=== PATIENT | female | born 1955 | race African-American/Black ===

== ENCOUNTER 2019-01-07 16:55 | Emergency (ER) | payer MEDICARE, MEDICAID ==
[2019-01-07 17:08] VITALS: BP 156/95
--- NOTE | 2019-01-07 17:15 | UC ---
Dizzy HPI HPI Summary: 63 yo female with one week hx of polydipsia/polyuria, visual complaints, n/v and dizziness no CP or SOB 2 days ago had some palpitations ...lasted 10-15 min - History Of Current Complaint Chief Complaint: UCDizziness Stated Complaint: HIGH BLOOD SUGAR, LIGHT HEADED Time Seen by Provider: 01/07/19 17:15 Hx Obtained From: Patient Hx Last Menstrual Period: post Onset/Duration: Gradual Onset, Lasting Days Timing: Constant Severity Initially: Mild Severity Currently: Moderate Pain Intensity: 0 Pain Scale Used: 0-10 Numeric Character: Lightheaded, Weak, Dizzy Aggravating Factor(s): Position Change Alleviating Factor(s): Rest Associated Signs And Symptoms: Positive: Nausea, Vomiting, Palpitations - 2 days prior, Unsteady Gait, Visual Changes. Negative: Diaphoresis, Tinnitus, Chest Pain, SOB, Decreased Oral Intake, Change In Medication, Change In Diet, OTC Medications - Allergies/Home Medications Allergies/Adverse Reactions: Allergies Allergy/AdvReac Type Severity Reaction Status Date / Time codeine Allergy Intermediate Itching Verified 01/07/19 17:08 Home Medications: Home Medications NK [No Home Medications Reported] 01/07/19 [History Confirmed 01/07/19] PMH/Surg Hx/FS Hx/Imm Hx Previously Healthy: Yes - Surgical History Surgery Procedure, Year, and Place: tubal ligation. D and C. back surgery - Family History Known Family History: Positive: Hypertension, Diabetes - Social History Alcohol Use: None Substance Use Type: None Smoking Status (MU): Light Every Day Tobacco Smoker Type: Cigarettes Review of Systems All Other Systems Reviewed And Are Negative: Yes Constitutional: Positive: Fatigue Skin: Positive: Negative Eyes: Positive: Negative ENT: Positive: Negative Respiratory: Positive: Negative Cardiovascular: Positive: Palpitations Gastrointestinal: Positive: Vomiting, Nausea Genitourinary: Positive: Frequency Motor: Positive: Negative Neurovascular: Positive: Negative Musculoskeletal: Positive: Negative Neurological: Positive: Negative Psychological: Positive: Negative Physical Exam Triage Information Reviewed: Yes Appearance: Well-Appearing, No Pain Distress, Well-Nourished Vital Signs: Initial Vital Signs Temp 98.3 F 01/07/19 17:03 Pulse 89 01/07/19 17:03 Resp 19 01/07/19 17:03 BP 156/95 01/07/19 17:03 Pulse Ox 100 01/07/19 17:03 Vital Signs Reviewed: Yes Eyes: Positive: Conjunctiva Clear ENT: Positive: Hearing grossly normal. Negative: Nasal congestion, Nasal drainage, Trismus, Muffled voice, Hoarse voice Dental: Negative: Abscess @ Neck: Positive: Supple Respiratory: Positive: Lungs clear, Normal breath sounds, No respiratory distress, No accessory muscle use Cardiovascular: Positive: RRR, No Murmur Abdomen Description: Positive: Nontender, No Organomegaly. Negative: CVA Tenderness (R), CVA Tenderness (L) Bowel Sounds: Positive: Present Musculoskeletal: Positive: ROM Intact, No Edema Neurological: Positive: Alert Skin Exam: Normal Diagnostics - EKG Cardiac Rate: NL Cardiac Rhythm: Sinus: Normal Ectopy: None ST Segment: Normal Dizzy Course/Dx - Course Course Of Treatment: UA +++ glucose, ++ketones, finger stick too high to read D/W Ruslan in [facility] Transfer via EMS - Differential Dx/Diagnosis Provider Diagnosis: Hyperglycemia, Dizziness Discharge - Sign-Out/Discharge Documenting (check all that apply): Patient Departure All imaging exams completed and their final reports reviewed: No Studies - Discharge Plan Condition: Stable Disposition: TRANS HIGHER LVL OF CARE FAC - Billing Disposition and Condition Condition: STABLE Disposition: Trans Higher Lvl of Care Fac
[2019-01-07] MEDS ORDERED: NS 0.9% 1000 ML** 1,000 ML BOLUS ONE (17:48)
== END 2019-01-07 18:00 | disposition short-term general hospital (02) ==
LOC: UCEAST 16:55
DX: R73.9 Hyperglycemia, unspecified (principal); R42 Dizziness and giddiness; R11.2 Nausea with vomiting, unspecified; R26.81 Unsteadiness on feet; H53.9 Unspecified visual disturbance; R63.1 Polydipsia; R35.8 Other polyuria; Z88.5 Allergy status to narcotic agent; F17.210 Nicotine dependence, cigarettes, uncomplicated
CPT/HCPCS: 81003; 99203; G0463

== ENCOUNTER 2019-01-07 18:58 | Inpatient (IN) | payer MEDICARE, MEDICAID ==
[2019-01-07] MEDS ORDERED: NS 0.9% 1000 ML** 1,000 ML IV ONE (19:18)
--- NOTE | 2019-01-07 19:25 | ED ---
Dizziness - HPI Summary HPI Summary: Pt is a 63 y/o F presenting to the ED brought in by EMS from [facility] for a diabetic issue. About 1 month ago, she started experiencing frequent thirst accompanied by frequent urination, dizziness, and heart palpitations. On 01/03/19 , she noted more frequent heart palpitations, vomiting and when she went to take her trash out her L leg buckled d/t weakness. Today, she went to [facility] for dizziness, where they discovered her blood sugar was very high in the 400s. In transport by EMS, her high blood sugar was confirmed in the 300s. She denies one-sided weakness, issues with her vision or issues with her speech , CP, and SOB. She has Fhx of DM, MN, and CVAs. She thinks this could be a diabetic issue but she does not have any personal hx of diabetes. - History Of Current Complaint Chief Complaint: EDDiabeticProb Stated Complaint: HIGH BLOOD SUGAR/POSS DIABETIC PROBLEM PER EMS Hx Obtained From: Patient Onset/Duration: Still Present, Gradually Timing: Constant Severity Initially: Moderate Severity Currently: Moderate Character: Dizzy Aggravating Factor(s): Nothing Alleviating Factor(s): Nothing Associated Signs And Symptoms: Positive: Nausea, Vomiting, Palpitations, Other: - frequent urination, increased thirst, heart palpitations. Negative: Chest Pain, SOB, Visual Changes, Slurred Speech - Allergies/Home Medications Allergies/Adverse Reactions: Allergies Allergy/AdvReac Type Severity Reaction Status Date / Time codeine Allergy Intermediate Itching Verified 01/07/19 17:08 PMH/Surg Hx/FS Hx/Imm Hx Previously Healthy: Yes Endocrine/Hematology History: Denies: Hx Thyroid Disease Cardiovascular History: Denies: Hx Hypertension Respiratory History: Denies: Hx Chronic Obstructive Pulmonary Disease (COPD) - Surgical History Surgery Procedure, Year, and Place: tubal ligation. D and C. back surgery Infectious Disease History: No Infectious Disease History: Denies: Hx Hepatitis, Traveled Outside the [place] in Last 30 Days - Family History Known Family History: Positive: Cardiac Disease, Hypertension, Diabetes, Other - CVA - Social History Alcohol Use: None Hx Substance Use: No Substance Use Type: Reports: None Hx Tobacco Use: Yes Smoking Status (MU): Former Smoker Type: Cigarettes Review of Systems Positive: Other - increased thirst Positive: Palpitations. Negative: Chest Pain Negative: Shortness Of Breath Positive: Vomiting, Nausea Positive: frequency Neurological: Other - dizziness Positive: Weakness - weakness in L leg, no unilateral general weakness. All Other Systems Reviewed And Are Negative: Yes Physical Exam - Summary Physical Exam Summary: Constitutional: Well-developed, Well-nourished, Alert. (-) Distressed Skin: Warm, Dry HENT: Normocephalic; Atraumatic Eyes: Conjunctiva normal Neck: Musculoskeletal ROM normal neck. (-) JVD, (-) Stridor, (-) Tracheal deviation Cardio: Rhythm regular, rate normal, Heart sounds normal; Intact distal pulses; The pedal pulses are 2+ and symmetric. Radial pulses are 2+ and symmetric. (-) Murmur Pulmonary/Chest wall: Effort normal. (-) Respiratory distress, (-) Wheezes, (-) Rales Abd: Soft, (-) tenderness, (-) Distension, (-) Guarding, (-) Rebound Musculoskeletal: (-) Edema Lymph: (-) Cervical adenopathy Neuro: Alert, Oriented x3 Psych: Mood and affect Normal Triage Information Reviewed: Yes Vital Signs On Initial Exam: Initial Vitals Temp Pulse Resp BP Pulse Ox 97.8 F 79 18 149/119 99 01/07/19 19:05 01/07/19 19:05 01/07/19 19:05 01/07/19 19:05 01/07/19 19:05 Vital Signs Reviewed: Yes Diagnostics - Vital Signs Vital Signs Temp Pulse Resp BP Pulse Ox 01/07/19 19:05 97.8 F 79 18 149/119 99 - Laboratory Result Diagrams: 01/07/19 19:39 01/07/19 19:39 Lab Statement: Any lab studies that have been ordered have been reviewed, and results considered in the medical decision making process. - EKG 2052 Cardiac Rate: NL - 85bpm EKG Rhythm: Sinus Rhythm ST Segment: Normal Ectopy: None Summary of EKG Findings: EKG at 2052 shows NSR at 85bpm with nml ND intervals, nml QRS, nml QTc, nml ST segment, and flattened T-waves in aVF. Overall, this is a nonspecific EKG. Re-Evaluation - Re-Evaluation 1st re-eval Re-Evaluation Time: 20:54 Change: Unchanged Comment: I discussed the results and plan with the patient who is agreeable to being admitted. Dizzy Course/Dx - Course Course Of Treatment: Pt is a 63 y/o F presenting to the ED from [facility] brought in by EMS for high blood sugar. Over the past month, she has experienced her L leg buckling d/t weakness, dizziness, frequent urination with increased thirst, heart palpitations, nausea, and vomiting. She denies one-sided weakness, issues with her vision or issues with her speech, CP, and SOB. She has Fhx of diabetes , but has never been diagnosed herself. Pt's physical exam is unremarkable. Pt s bloodwork is nml. Blood gas shows VBG HCO3 of 22.3, VBG O2Sat of 24, and VBG base excess is -0.8. Her chemistry shows sodium of 132, chloride of 98, AST of 10, alkaline phosphate of 134, CRP of 12.75, and lipase of 75. She has a notably high blood glucose of 519, and POC glucose of 402. EKG at 2052 shows NSR at 85bpm with nml ND intervals, nml QRS, nml QTc, nml ST segment, and flattened T-waves in aVF. Overall, this is a nonspecific EKG. Pt will be admitted to [facility] under Dr. Vargas w/ anya including new-onset diabetes, hyperglycemia, and near syncope, as of 2051. I discussed the results with the pt at 2053 who is agreeable with this plan. - Diagnoses Provider Diagnoses: Diabetes mellitus, new onset, Hyperglycemia, Pre-syncope Discharge - Sign-Out/Discharge Documenting (check all that apply): Patient Departure - Discharge Plan Condition: Stable Disposition: ADMITTED TO [facility] - Billing Disposition and Condition Condition: STABLE Disposition: Admitted to [facility] - Attestation Statements Document Initiated by Martitaibjose: Yes Documenting Scribe: Lizet Hassan Provider For Whom Robb is Documenting (Include Credential): Jennifer Cee MD. Scribe Attestation: Lizet Haile, scribed for Jennifer Pedraza MD. on 01/07/19 at 2242. Scribe Documentation Reviewed: Yes Provider Attestation: The documentation as recorded by the Lizet schmidt accurately reflects the service I personally performed and the decisions made by me, Jennifer Pedraza MD. Status of Scribe Document: Viewed Consult Consult: 2051 - I spoke with Dr. Vargas who will be admitting the pt to [facility].
[2019-01-07 19:56] LABS: ABS Basophils 0 10^3/ul (0-0.2); ABS Eosinophils 0 10^3/ul (0-0.6); ABS Lymphocytes 2.1 10^3/ul (1.0-4.8); ABS Monocytes 0.5 10^3/ul (0-0.8); ABS Neutrophils 2.9 10^3/ul (1.5-7.7); ABS Nucleated RBC 0 10^3/ul; Eosinophil % 0.6 %; Hematocrit 39 % (35-47); Hemoglobin 13.1 g/dL (12.0-16.0); Lymphocyte % 38.4 %; Mean Corpuscular HGB Conc 33 g/dL (31-36); Mean Corpuscular Hemoglobin 30 pg (27-31); Mean Corpuscular Volume 90 fL (80-97); Mean Platelet Volume 7.5 fL (7.4-10.4); Nucleated Red Blood Cells % 0.2; Platelet Count 325 10^3/uL (150-450); Red Blood Count 4.37 10^6 /uL (3.70-4.87); Red Cell Distribution Width 13 % (10.5-15); White Blood Count 5.6 10^3/uL (3.5-10.8)
[2019-01-07 20:06] LABS: Albumin 4.3 g/dL (3.2-5.2); Albumin/Globulin Ratio 1.1 (1-3); BUN/Creatinine Ratio 13.2 (8-20); C Reactive Protein 12.75 mg/L (<8.01); Calcium 9.6 mg/dL (8.6-10.3); EGFR African American 92.4 (>60); EGFR Non-African American 76.4 (>60); Globulin 3.8 g/dL (2-4); Phosphorus 3.1 mg/dL (2.5-5.0); Potassium 4.4 mmol/L (3.5-5.0); Total Bilirubin 0.5 mg/dL (0.2-1.0); Total Protein 8.1 g/dL (6.4-8.9)
[2019-01-07] MEDS ORDERED: Insulin REGULAR(*) 1 UNITS UNIT IV PUSH ONE (20:16)
[2019-01-07 21:32] LABS: Urine Appearance Clear; Urine Bacteria Absent (Absent); Urine Bilirubin Negative (Negative); Urine Blood 2+ (Negative); Urine Color Straw; Urine Glucose 3+(>=500 mg/dL) (Negative); Urine Ketones 2+ (Negative); Urine Nitrite Negative (Negative); Urine Protein Negative (Negative); Urine Red Blood Cell Trace(0-2/hpf) (Absent); Urine Specific Gravity 1.035 (1.010-1.030); Urine Squamous Epithelial Cell Present (Absent); Urine Urobilinogen Negative (Negative); Urine White Blood Cell Trace(0-5/hpf) (Absent)
--- NOTE | 2019-01-07 21:50 | ADMNOTE ---
Subjective Date of Service: 01/07/19 Interval History: HISTORY and PHYSICAL PCP: none CC: dizziness/fall HPI: Patient is 63 year old woman with history of obesity, hyperlipidemia, who has had 1 week of dizziness, unsteadiness. Four days ago, left leg spasmed when walking to mailbox, and she slowly fell to ground. She was able to get up, had no head injury, no loss of consciousness. She also has had increased thirst, polydipsia for 1 week, and polyuria for 2 weeks. Her vision has been blurred off and on. She is working on quitting tobacco, fully quit 1 week ago. Family History: Findings - Mother of CAD, brother has diabetes, son has severe mental retardation Social History: Findings - Disabled, cares for son, , 4 children, quit tobacco, no alcohol or drug use, Past Medical History: Findings - Obesity, hyperlipidemia, GERD, h/o superficial phlebitis; PSH: LS spine surgery, bladder suspension, vein stripping Review of Systems - Measurements Intake and Output: Intake and Output Last 24 Hours 01/05/19 01/06/19 01/07/19 01/08/19 06:59 06:59 06:59 06:59 Intake Total 1000 Balance 1000 Weight 83.915 kg Intake: IV Fluids 1000 - Review of Systems Constitutional Symptoms: Positive: Fatigue Dermatology: Positive: Normal HEENT: Positive: Normal Eyes: Positive: Change in Vision Thyroid: Positive: Normal Pulmonary: Positive: Normal Negative: Shortness of Breath Cardiology: Positive: Normal Negative: Chest Pain Gastroenterology: Positive: Abdominal Pain Genital - Urinary: Positive: Polyuria Musculoskeletal: Positive: Joint Pain Endocrinology: Positive: Polydipsia, Polyuria Hematologic/Lymphatic: Negative: Anemia Neurology: Positive: Change in Vision, Change in Balancing, Change in Coordination, Change in Walking Psychiatry: Positive: Normal Objective Active Medications: Home Medications: None Vital Signs - 8 hr 01/07/19 01/07/19 01/07/19 20:06 20:35 21:00 Temperature Pulse Rate 79 82 88 Respiratory Rate Blood Pressure 150/101 152/111 (mmHg) O2 Sat by Pulse 94 99 97 Oximetry 01/07/19 01/07/19 21:05 21:35 Temperature Pulse Rate 85 92 Respiratory Rate Blood Pressure 141/99 137/99 (mmHg) O2 Sat by Pulse 98 100 Oximetry Oxygen Devices in Use Now: None Appearance: alert, no distress Eyes: No Scleral Icterus Ears/Nose/Mouth/Throat: NL Teeth, Lips, Gums Neck: NL Appearance and Movements; NL JVP Respiratory: Symmetrical Chest Expansion and Respiratory Effort, Clear to Auscultation Cardiovascular: NL Sounds; No Murmurs; No JVD, RRR Abdominal: No Hepatosplenomegaly, - - tender RUQ, +BS, no masses Lymphatic: No Cervical Adenopathy Extremities: No Edema Skin: No Rash or Ulcers Neurological: Alert and Oriented x 3 Lines/Tubes/Other Access: Clean, Dry and Intact Peripheral IV Nutrition: Taking PO's Result Diagrams: 01/07/19 19:39 01/07/19 19:39 Additional Lab and Data: Laboratory Tests 01/07/19 01/07/19 01/07/19 19:31 19:39 19:39 VBG pH VBG pCO2 VBG pO2 VBG HCO3 VBG O2 Saturation Glucose 519 H* POC Glucose (mg/dL) 402 H* Lactic Acid 1.4 Alkaline Phosphatase 134 H Troponin I 0.00 Lipase 97 H 01/07/19 19:39 VBG pH 7.38 VBG pCO2 41 VBG pO2 < 38.0 VBG HCO3 22.3 L VBG O2 Saturation 24.0 L Glucose POC Glucose (mg/dL) Lactic Acid Alkaline Phosphatase Troponin I Lipase EKG Data: EKG: normal sinus rhythm, non-spec T-wave changes III, aVL Assess/Plan/Problems-Billing Assessment: 63 year old woman w/ new onset diabetes, mild hyperosmolar state, fall - Patient Problems (1) Diabetes type 2, uncontrolled Current Visit: Yes Status: Acute Priority: High Code(s): E11.65 - TYPE 2 DIABETES MELLITUS WITH HYPERGLYCEMIA SNOMED Code(s): 996102680 Comment: -Patient has new onset diabetes, risk of hyperosmolar state, clearly non-ketotic -Calculated Na is 139, will check serum osm. -Admit to medical, hydrate aggressively, and start on long-acting insulin -Humalog will be given every 4 hours, does not require insulin drip -Will need nutrition consult, insulin treatment due to severity of diabetes -Consider discharge on metformin -Needs to establish with primary care (2) Hypertension Current Visit: Yes Status: Acute Priority: Medium Code(s): I10 - ESSENTIAL (PRIMARY) HYPERTENSION SNOMED Code(s): 34343264 Comment: -BP above target 130/85, will start lisinopril (3) Right upper quadrant abdominal pain Current Visit: Yes Status: Acute Priority: Medium Code(s): R10.11 - RIGHT UPPER QUADRANT PAIN SNOMED Code(s): 974696593 Comment: -RUQ pain, differential includes gastritis, gallstones, cholecystitis. -RUQ ultrasound planned in AM (4) Elevated lipase Current Visit: Yes Status: Acute Priority: Medium Code(s): R74.8 - ABNORMAL LEVELS OF OTHER SERUM ENZYMES SNOMED Code(s): 914617631 Comment: -lipase mildly elevated, will recheck in AM, may have mild pancreatitis (5) DVT prophylaxis Current Visit: Yes Status: Acute Priority: Low Code(s): KDM2430 - SNOMED Code(s): 749462677 Comment: -Moderate risk, start SC Lovenox
[2019-01-07] MEDS: Insulin GLARGINE(*) 1 UNITS UNIT SUBCUT SCH (23:04)
[2019-01-07] MEDS: Lisinopril TAB* 10 MG PO SCH (23:05)
[2019-01-07] MEDS: Enoxaparin(*) 40 MG/0.4 ML SYR SUBCUT SCH (23:05)
[2019-01-07] MEDS: Insulin LISPRO* 1 UNITS UNIT SUBCUT SCH (23:49)
[2019-01-08] MEDS: Al Hydrox/Mg Hydrox/Simet LIQ* 30 ML UDC PO PRN ×2 (01:42→14:26)
[2019-01-08] MEDS: Insulin LISPRO* 1 UNITS UNIT SUBCUT SCH ×6 (01:52→21:29)
[2019-01-08] MEDS: NS 0.9% 1000 ML** 1,000 ML IV SCH ×3 (04:03→21:48)
[2019-01-08 07:21] LABS: BUN/Creatinine Ratio 21.1 (8-20); Calcium 8.6 mg/dL (8.6-10.3); EGFR African American 128.8 (>60); EGFR Non-African American 106.4 (>60); Potassium 3.2 mmol/L (3.5-5.0)
[2019-01-08] MEDS: Lisinopril TAB* 10 MG PO SCH (08:32)
[2019-01-08] MEDS: KCL 20 MEQ/100 ML IVPREMIX* 20 MEQ/100 ML BAG IV SCH ×2 (08:35→11:56)
[2019-01-08] MEDS ORDERED: Potassium Chlor TAB* 20 MEQ TAB.ER PO SCH (12:00)
[2019-01-08] MEDS: Potassium Chloride LIQUID 20 MEQ/15 ML PO SCH ×2 (14:26→16:17)
--- NOTE | 2019-01-08 16:41 | PN ---
Subjective Date of Service: 01/08/19 Interval History: VS: VS WNL Lab: hypokalemia- repleted; elevated BS Pt states that she is feeling better today. Yesterday, she c/o dizziness, blurred vision, increased urine output, polydipsia. She states she has had progressive vision changes for approximately 1 year. Today she is closer to baseline. She reports decrease in dizziness. She continues to have intermittent RUQ pain that she describes as soreness with occasional sharpness. She has intermittent nausea without vomiting. She denies CP, SOB. She reports that she quit smoking last week. Family History: Findings - Mother of CAD, brother has diabetes, son has severe mental retardation Social History: Findings - Disabled, cares for son, , 4 children, quit tobacco, no alcohol or drug use, Past Medical History: Findings - Obesity, hyperlipidemia, GERD, h/o superficial phlebitis; PSH: LS spine surgery, bladder suspension, vein stripping Objective Active Medications: Al Hydrox/Mg Hydrox/Simethicone (Maalox Plus*) 30 ml PO Q4H PRN Enoxaparin Sodium (Lovenox(*)) 40 mg SUBCUT BEDTIME PAULA Sodium Chloride (Ns 0.9% 1000 Ml) 1,000 mls @ 150 mls/hr IV PER RATE [facility] Insulin Human Lispro (Humalog*) 0 units SUBCUT ACHS PAULA; Protocol Lisinopril (Prinivil Tab*) 10 mg PO DAILY [facility] Vital Signs - 8 hr 01/08/19 01/08/19 01/08/19 09:00 11:14 13:55 Temperature 98.4 F 97.9 F 97.7 F Pulse Rate 57 74 76 Respiratory 16 18 20 Rate Blood Pressure 114/62 110/74 129/70 (mmHg) O2 Sat by Pulse 100 100 100 Oximetry Oxygen Devices in Use Now: None Appearance: Pt is ambulating well, and sits during discussion. She appears well and in no acute distress. Eyes: No Scleral Icterus, PERRLA Ears/Nose/Mouth/Throat: NL Teeth, Lips, Gums, Clear Oropharnyx, Mucous Membranes Moist Neck: NL Appearance and Movements; NL JVP, Trachea Midline Respiratory: Symmetrical Chest Expansion and Respiratory Effort, Clear to Auscultation Cardiovascular: NL Sounds; No Murmurs; No JVD, RRR, No Edema Abdominal: - - BS in all quadrants. Abdomen TTP at RUQ with positive Cabral's sign. No distention. Extremities: No Edema, No Clubbing, Cyanosis Neurological: Alert and Oriented x 3 Result Diagrams: 01/07/19 19:39 01/08/19 06:29 Additional Lab and Data: Laboratory Tests 01/07/19 01/07/19 01/07/19 19:31 19:39 19:39 VBG pH VBG pCO2 VBG pO2 VBG HCO3 VBG O2 Saturation Glucose 519 H* POC Glucose (mg/dL) 402 H* Lactic Acid 1.4 Alkaline Phosphatase 134 H Troponin I 0.00 Lipase 97 H 01/07/19 19:39 VBG pH 7.38 VBG pCO2 41 VBG pO2 < 38.0 VBG HCO3 22.3 L VBG O2 Saturation 24.0 L Glucose POC Glucose (mg/dL) Lactic Acid Alkaline Phosphatase Troponin I Lipase Microbiology and Other Data: Microbiology 01/07/19 21:21 Urine Culture - Final Urine No Growth (<1,000 CFU/mL) EKG Data: EKG: normal sinus rhythm, non-spec T-wave changes III, aVL Assess/Plan/Problems-Billing Assessment: 63 year old woman w/ new onset diabetes, mild hyperosmolar state, fall. - Patient Problems (1) Diabetes type 2, uncontrolled Comment: -New onset DM II. BS low in a.m., trend up during day. -Continue Lantus 15 -Start standing Lispro 5 with Lispro ss -Awaiting nutrition consult -Consider discharge on metformin -Needs to establish with primary care (2) Right upper quadrant abdominal pain Comment: -Continued intermittent RUQ pain with positive Cabral's sign; US reveals cholelith with indeterminate acute cholecystitis, CBD ectasia -Surgery consulted (3) Hypertension Comment: -Well controlled with Lisinopril (4) DVT prophylaxis Comment: -Lovenox SQ Status and Disposition: Inpatient. Pending surgical evaluation due to US shows cholelith, indeterminate cholecystitis; positive Cabral's Sign on PE. Awaiting nutritional consult and DM education.
[2019-01-08] MEDS ORDERED: Dextrose 50% Syringe 50 ML* 25 GM/50 ML SYRINGE IV PUSH PRN (17:49)
--- NOTE | 2019-01-08 20:55 | CONS ---
CONSULTATION REPORT: DATE OF CONSULT: 01/08/19 CHIEF COMPLAINT: Abdominal pain. HISTORY OF PRESENT ILLNESS: Ms. Lisset Slaughter is a 63-year-old female admitted with poorly controlled diabetes. She also had some right upper quadrant pain last night and therefore, an ultrasound was ordered and she is found to have cholelithiasis. There are no definite findings of acute cholecystitis. By history, she has been having gallbladder symptoms for over a year. Sometimes it might occur once a month, sometimes it can occur a couple of times a week. She is a little vague in terms of her history of how often that is happening. She shows me the right subcostal region where the pain occurs. Sometimes it goes around to the back, sometimes she has nausea, queasiness, vomiting. She might have some diarrhea. She does not tend to have any change in the color of the stool or urine. She does tend to be febrile. She has not been admitted to the hospital with this before. She has not had any surgery in the region and maybe she is a little gassy or belchy or bloated, although again she is a little vague on those symptoms. PHYSICAL EXAM: On examination today, she is a well-built, well-nourished female consistent with stated age, does not appear acutely ill. Sclerae anicteric. She is not diaphoretic. Abdomen is obese and soft. There is a trace right subcostal tenderness. No Cabral sign, no guarding, no rebound tenderness. She states to me that it is way better than it was last night. DIAGNOSTIC STUDIES/LAB DATA: Her laboratory studies show normal bilirubin and relatively normal transaminases, and alkaline phosphatase is trace elevated. Her lipase is also trace elevated at 120. IMPRESSION AND RECOMMENDATIONS: A 63-year-old female with poorly controlled type 2 diabetes, who comes in for exacerbation of her diabetes and has some right upper quadrant pain. The pain has abated quite a bit and it seems to me that she has chronic cholecystitis with flare-ups of biliary colic. I have discussed this with her. I think she would benefit from laparoscopic cholecystectomy. She understands the procedure, the rationale, the risks and the expected recovery and agrees to proceed in the fashion outlined. However, there is nothing that mandate surgery acutely right now or even on this admission, the current attack has abated, so I suggest that she be discharged when medically appropriate and I will get her on the operating schedule for next week and we can bring her back in for gallbladder surgery at that time. [id number]/[facility] #: [id number] KEVON
[2019-01-08] MEDS: Insulin GLARGINE(*) 1 UNITS UNIT SUBCUT SCH (21:29)
[2019-01-08] MEDS: Enoxaparin(*) 40 MG/0.4 ML SYR SUBCUT SCH (21:30)
[2019-01-09] MEDS: NS 0.9% 1000 ML** 1,000 ML IV SCH (04:40)
[2019-01-09 07:04] LABS: BUN/Creatinine Ratio 15.6 (8-20); Calcium 8.4 mg/dL (8.6-10.3); EGFR African American 112.7 (>60); EGFR Non-African American 93.1 (>60)
[2019-01-09] MEDS ORDERED: Insulin GLARGINE(*) 1 UNITS UNIT SUBCUT SCH (09:00)
[2019-01-09] MEDS: Insulin LISPRO* 1 UNITS UNIT SUBCUT SCH ×4 (09:27→12:56)
[2019-01-09] MEDS: Lisinopril TAB* 10 MG PO SCH (09:27)
[2019-01-09 11:44] VITALS: BP 107/75
--- NOTE | 2019-01-09 14:12 | PN ---
Progress Note - Progress Note Date of Service: 01/09/19 Note: Seen for abd pain Feels well, no abd pain <Mild back discomfort Abd benign on exam Impr: Chronic cholecystitis/cholelithiasis Plan laparoscopic cholecystectomy 01/15/19 Disch per hospitalist
--- NOTE | 2019-01-10 10:05 | DS ---
CC: Ruslan Sweeney MD; Gilmer Weaver MD * DISCHARGE SUMMARY: DATE OF ADMISSION: 01/07/19 DATE OF DISCHARGE: 01/09/19 PRIMARY CARE PROVIDER: [facility]. SURGEON: Ruslan Sweeney MD. STREET LIGHT WIRER: Gilmer Weaver MD. ATTENDING PHYSICIAN: Svitlana Cary DO * (dictated by BUCK Malone). PRIMARY DIAGNOSES: 1. Diabetes mellitus type 2, new onset. 2. Hypertension, new diagnosis. SECONDARY DIAGNOSES: 1. Hyperlipidemia. 2. Obesity, body mass index 29. STUDIES WHILE IN THE HOSPITAL: Gallbladder ultrasound 01/08/19, impression: Hepatomegaly with fatty infiltration of the liver. Cholelithiasis with mild bilateral thickening and indeterminate sonographic Cabral sign. The sonographic features are indeterminate for acute cholecystitis. Ectasia of the common duct up to 1 cm without intrahepatic biliary dilation. DISCHARGE MEDICATIONS: Harold Medications: 1. Glipizide 10 mg p.o. daily. 2. Lisinopril 10 mg p.o. daily. 3. Metformin ER 750 mg p.o. at bedtime. 4. Insulin glargine 20 units subcu daily at night, increased by 2 units q.2 days for blood sugar greater than 150, maximum daily dose 30. HISTORY OF PRESENT ILLNESS/HOSPITAL COURSE: Ms. Lisset Slaughter is a 63-year-old female with a past medical history of hyperlipidemia and obesity who presented to the ER due to dizziness and unsteadiness for approximately 1 week. She states that she has also had polydipsia, polyuria for approximately that amount of time. She also describes vision changes as blurred vision. She arrived to the ER and she was found to have a blood sugar in the 400s. She was admitted to the hospital and hydrated. She was started on long-acting insulin as well as Humalog every 4 hours. The patient was ordered a nutritional consult, which was done. Diabetic teaching was also performed during inpatient stay. The patient will follow up with Dr. Weaver for further management of diabetes. She will be discharged on glipizide, metformin, and Lantus. Regarding her blurred vision, the patient states that this has been going on for approximately 1 year. She last saw an district sales manager in 2012. She states that she has glasses and these are from 2012. It was recommended that she follow up for a diabetic eye exam as soon as possible. The patient was also noted to have hypertension while in the ER. She was started on lisinopril 10, which adequately controlled her blood pressures throughout her stay. She was discharged on this medication. The patient also had complaints of right upper quadrant pain. Ultrasound of the gallbladder showed cholelithiasis with mild thickening and was indeterminate for acute cholecystitis. Dr. Sweeney was consulted and recommended a cholecystectomy for chronic cholecystitis with flare-ups of biliary colic. He recommended that she be discharged when medically stable and scheduled for a laparoscopic cholecystectomy next week, which will be set up by [facility]. At the time of discharge, the patient states that she is feeling better. She denies chest pain, shortness of breath, abdominal pain, nausea, vomiting, diarrhea, constipation, or pain or swelling in the extremities. She does continue to have blurred vision, which has been chronic for approximately 1 year. She plans to schedule a diabetic eye appointment at discharge. Ms. Lisset Slaughter is stable for discharge. PHYSICAL EXAMINATION: Vital Signs: Temperature 98.4 oral, heart rate 56, respiratory rate 20, oxygen saturation 100% on room air, blood pressure 107/75. General: Ms. Darling is a well-developed, well-nourished, obese - [place] woman who is sitting at the edge of her bed. She is in no acute distress. She appears well. HEENT: Visual grider are grossly intact. Pupils are equally round and reactive to light. Extraocular movements are intact. There is no scleral icterus. Oral mucous membranes are moist. Pharynx is clear. Cardiovascular: Regular rate and rhythm with S1, S2 present. No murmurs , rubs, or gallops. No JVD. Respiratory: Symmetrical chest expansion without the use of accessory muscles. Lungs are clear to auscultation. No rhonchi, wheeze, or rubs. Abdomen is obese. Bowel sounds in all quadrants. The abdomen is soft. There is some tenderness to the right upper quadrant on deep palpation. Mild positive Cabral sign. No hepatosplenomegaly. Extremities: Skin is warm and smooth bilaterally. There is no clubbing, cyanosis, or edema. Radial and pedal pulses are palpable. Neuro: The patient is awake. She is alert and oriented. She is able to move all of her extremities. She has a steady gait with no impairments. DISCHARGE PLAN: Ms. Lisset Slaughter will be discharged to home. ACTIVITY: As tolerated. DIET: Heart healthy, ADA. MEDICATIONS: 1. Take glipizide 10 mg and lisinopril 10 mg every morning. 2. Take metformin 750 mg every evening. 3. Take Lantus 20 units at bedtime, increase Lantus by 2 units every day for morning blood sugars greater than 150. EDUCATION: 1. Monitor and log blood sugars at least 2 times daily, first morning blood sugar and before dinner, bring these to appointment with Dr. Weaver. 2. Monitor for signs and symptoms of low blood sugar and check blood sugar when these symptoms occur. 3. Follow up with [facility]. They will call you with appointment date and time. 4. Follow up with Dr. Sweeney for cholecystectomy. They will call you with appointment date and time. 5. Follow up with Dr. Weaver regarding new-onset diabetes, appointment scheduled for 01/14/19 at 9:10. Bring blood sugar log to this appointment. 6. Make diabetic eye appointment as soon as possible. 7. Return to the ER or nearest hospital if you experience any worsening of symptoms, shortness of breath, chest discomfort, dizziness, lightheadedness, loss of consciousness, high fever, chills, night sweats, or any other worrisome signs or symptoms. Return if you experience severe abdominal pain, nausea, or vomiting. This is a summarized report of a complex medical history and hospital stay. For further details, please see the entire medical record. TIME SPENT: Approximately 35 minutes were spent on this discharge, greater than half that time was spent [id number] with the patient discussing discharge plans and instructions. BUCK ZULUAGA [id number]/[facility] #: [id number] KEVON
== END 2019-01-09 14:57 | disposition home health service (06) | DRG 638 ==
LOC: ED 18:58 → MED 21:12
PROVIDERS: ADMIT Internal Medicine; ATTEND Internal Medicine
DX: E11.00 Type 2 diabetes mellitus with hyperosmolarity without nonketotic hyperglycemic-hyperosmolar coma (NKHHC) (principal); K80.12 Calculus of gallbladder with acute and chronic cholecystitis without obstruction; E78.5 Hyperlipidemia, unspecified; K80.20 Calculus of gallbladder without cholecystitis without obstruction; E87.6 Hypokalemia; I10 Essential (primary) hypertension; K21.9 Gastro-esophageal reflux disease without esophagitis; W17.89XA Other fall from one level to another, initial encounter; Z88.6 Allergy status to analgesic agent; Z83.3 Family history of diabetes mellitus; Z82.49 Family history of ischemic heart disease and other diseases of the circulatory system; Z82.3 Family history of stroke; Z98.51 Tubal ligation status; Z87.891 Personal history of nicotine dependence; Z81.8 Family history of other mental and behavioral disorders; Z68.29 Body mass index [BMI] 29.0-29.9, adult; Z79.4 Long term (current) use of insulin; Y92.89 Other specified places as the place of occurrence of the external cause
CPT/HCPCS: 36415; 76705; 80048; 80053; 81003; 81015; 82550; 82803; 82947; 83036; 83605; 83690; 83735; 83930; 84100; 84484; 85025; 86140; 87086; 93005; 99284; A9270-GY; J1650; J3480